=== PATIENT | male | born 1990 ===

== ENCOUNTER 2025-03-23 10:46 | Emergency (ER) | payer OTHER, MEDICAID ==
[~2025-03-23] VITALS: Ht 170.2 cm; Wt 118.0 kg
[2025-03-23 11:13] VITALS: BP 129/75; PULSE 68; RESP 18; TEMP 98.4; O2SAT 95
--- NOTE | 2025-03-23 11:19 | Physician Documentation ---
History of Present Illness ~ Chief Complaint: Finger pain Stated Complaint: FINGER PAIN Time Seen by MD: 13:12 HPI 35-year-old male presents to the ED with a complaint of finger pain secondary a work injury. He says that he was seen at an urgent care had an x-ray which show ed a partial amputation / avulsion of his left index finger. The patient States that his finger was smashed between two machines. Bleeding is currently controlled he reports increased pain and swelling. Denies any numbness or tingling. Day of Onset: Mar 23, 2025 Medication Reconciliation Allergies: Uncoded Allergies: AMOXICILLIAN (Allergy, Unknown, itching, 03/23/25) Scheduled Cephalexin*Monohydrate* (Keflex*), 1 CAP PO QID Scheduled PRN Hydrocodone Bit/Acetaminophen 5/325 MG ([place] 5/325 MG), 1 TAB PO Q6H PRN for pain Review of Systems All Other Systems at this time: Reviewed and Negative ROS As stated above in the HPI, otherwise all systems are reviewed and negative. Physical Exam Vital Signs: Temperature: 98.4, Source: Oral, Heart Rate: 68, Respiratory Rate: 18, BP: 129/75, Pulse Oximetry: 95, Weight: 118.000 Physical Exam General: Alert, no apparent distress. Extremities: Normal range of motion, no deformity. left index avulsion disalt aspect Neurologic: Oriented x4. Procedures Laceration Repair : Anesthesia: Lidocaine Prep: irrigated by nurse Repaired: skin Wound Repaired With: sutures Suture Size/Type: 4-0 Number of Superficial Sutures: 15 Dressing Applied: non-adherent Tolerated Procedure Well?: yes, no complications Progress Results/Orders Results/Orders Orders - MIK MALLORY HEAD STOCK OPERATOR Finger(S) (03/23/25 11:26) Laceration/I&D Tray Set Up (03/23/25 ) Completed Orders - MIK MALLORY HEAD STOCK OPERATOR Finger(S) (03/23/25 11:26) Lidocaine 1% 30ml Vial (Xylocaine 1% Via (03/23/25 13:45) Tetanus/Pertuss/Diph Acell/Pf (Boostrix (03/23/25 13:50) Diazepam Inj (Valium Inj) (03/23/25 14:05) Medications Received in ER Medications (Trade) Dose Ordered Sig/Aisha Route PRN Reason Start Time Stop Time Status Last Admin Dose Admin (Boostrix vaccine syringe) 0.5 ml ONCE ONCE IMVAC 03/23/25 13:50 03/23/25 13:51 DC 03/23/25 15:00 0.5 ML Vital Signs 03/23/25 11:13 Temp 98.4 Pulse 68 Resp 18 B/P (MAP) 129/75 Pulse Ox 95 Medical Decision Making Findings This patient was evaluated while using an spanish interpreter. Based on his x-ray suspect a tuft fracture of his left index finger.. Consulted with Dr. Wilcox he agrees that is suturing after washing out is appropriate at this time. We will place the patient on oral antibiotics and have him follow up with a worker's comp provider for further evaluation. I think it is prudent to take him off work at this time until he can perform his work duties as expected Departure Disposition: HOME / SELF CARE / HOMELESS Impression: Primary Impression: Finger deformity Additional Impressions: Finger fracture, left Closed fracture of tuft of distal phalanx of finger Discharge Instructions: Fracture, Finger Additional Instructions: Sutures need to come out in 7-10 days.. Keep the area clean and dry. Keep it bandaged Referrals: NO PRIMARY CARE PROVIDER (PCP) Prescriptions Hydrocodone Bit/Acetaminophen 5/325 MG ([place] 5/325 MG) 5 Mg/325 Mg Tablet 1 TAB PO Q6H PRN for pain, #14 TAB Prov: MIK MALLORY NP 03/23/25 Cephalexin*Monohydrate* (Keflex*) 500 Mg Capsule 1 CAP PO QID, #40 CAP Prov: MIK MALLORY NP 03/23/25 Education Educated: Patient Educated regarding: diagnosis Signature Scribe Signature: f Attestation: Scribed for Mik Mallory [employer] by Mik Barboza NP . 03/23/25 15:01 MIK MALLORY NP Mar 23, 2025 11:19
--- NOTE | 2025-03-23 12:09 | RADIOLOGY REPORT ---
CLINICAL INDICATION: Finger Pain TECHNIQUE: 1 radiographic views of the hand and 2 views of the left 2nd digit were obtained. Comparison: None FINDINGS/IMPRESSION: Comminuted fracture of the left 2nd distal phalanx.
[2025-03-23] MEDS: LIDOcaine 1% 30ml preserv. free vial SQ STA (14:11)
[2025-03-23] MEDS: diazepam inj 5 MG/ML inj. IV ONE (14:34)
[2025-03-23] MEDS: TETanus/Pertussis (Acell)/Diphther VAC/PF (Tdap-Adult) 0.5ml syringe IMVAC ONE (15:00)
[2025-03-23] MEDS ORDERED: CEPH-585 PO (15:01)
[2025-03-23] MEDS ORDERED: HYDR-3965 PO (15:10)
== END 2025-03-23 15:22 | disposition home or self-care (01) ==
LOC: ER 10:49
DX: S62.631A Displaced fracture of distal phalanx of left index finger, initial encounter for closed fracture (principal); W23.0XXA Caught, crushed, jammed, or pinched between moving objects, initial encounter; Y93.89 Activity, other specified; Y92.89 Other specified places as the place of occurrence of the external cause; Y99.8 Other external cause status
CPT/HCPCS: 12001; 73140; 90471; 90715; 99283; A6449